=== PATIENT | male | born 1970 | race Caucasian/White ===

== ENCOUNTER → 2024-11-01 | Outpatient (CLI) | payer BC, SELFPAY ==
[2024-11-01 09:34] LABS: Basophils % (Auto) 1 % (0-2.5); Eosinophils # (Auto) 0.3 Thou/mm3 (0.0-0.5); Eosinophils % (Auto) 5 % (0-10); Hematocrit 38.8 % (41.0-53.0); Hemoglobin 12.2 g/dL (13.5-16.0); Immature Granulocytes % (Auto) 0 % (0-0); Immature Granulocytes Auto 0.01 Thou/mm3 (0.00-0.00); Lymphocytes # (Auto) 1.4 Thou/mm3 (1.0-4.8); Lymphocytes % (Auto) 27 % (10-50); Mean Corpuscular HGB Conc 31.4 g/dl (31.0-37.0); Mean Corpuscular Hemoglobin 26.7 pg (25.0-35.0); Mean Corpuscular Volume 85 fL (80-100); Monocytes # (Auto) 0.4 Thou/mm3 (0.0-0.8); Monocytes % (Auto) 8 % (0-12); Neutrophils # (Auto) 3.1 Thou/mm3 (1.8-7.7); Neutrophils % (Auto) 59 % (37-80); Nucleated Red Blood Cell % 0 /100 WBC (0); Platelet Count 161 Thou/mm3 (140-440); RDW Standard Deviation 43.6 fL (35.1-43.9); Red Blood Count 4.57 Miln/mm3 (4.50-5.90); White Blood Count 5.2 Thou/mm3 (3.8-10.6)
[2024-11-01 09:51] LABS: Creatinine MALB Rnd Ur 120 mg/dL (30-125); Microalbumin Creat Ratio 281 mg/gCrea (<30); Microalbumin, Random Urine 337 mg/L (0-300)
[2024-11-01 09:57] LABS: Alanine Aminotransferase 16 U/L (10-49); Albumin, Serum 4.2 gm/dL (3.5-5.0); Alkaline Phosphatase 56 U/L (46-116); Anion Gap 6 (7-16); Aspartate Amino Transferase 14 U/L (0-34); BUN/Creatinine Ratio 14 Ratio (12-20); Bilirubin,Direct 0.2 mg/dL (0.0-0.3); Bilirubin,Total 0.7 mg/dL (0.3-1.2); Blood Urea Nitrogen 15 mg/dL (9-23); Calcium 9.1 mg/dL (8.3-10.6); Carbon Dioxide 29.8 mMol/L (20.0-31.0); Chloride 108 mMol/L (98-107); Cholesterol 115 mg/dL (132-200); Creatinine (Component) 1.1 mg/dL (0.6-1.3); Glucose 137 mg/dL (74-106); HDL Cholesterol 38 mg/dL (40-60); LDL Cholesterol,Calculated 60 mg/dL (0-130); Osmolality,Calculated 289 (275-295); Potassium 4.3 mMol/L (3.4-5.1); Sodium 144 mMol/L (136-145); Total Protein 6.3 gm/dL (5.7-8.2); Triglycerides 84 mg/dL (30-150); eGFR > 60 See Note
[2024-11-01 10:12] LABS: Glucose Estimated Average 140 mg/dL (80-131); Hemoglobin A1C 6.5 % Hgb (4.8-6.0)
== END | disposition home or self-care (01) ==
LOC: COPL 07:59
PROVIDERS: PCP Family Medicine; Referring Provider Family Medicine; Visit Provider Family Medicine
DX: E11.9 Type 2 diabetes mellitus without complications (principal); D50.9 Iron deficiency anemia, unspecified; E78.5 Hyperlipidemia, unspecified
CPT/HCPCS: 36415; 80048; 80061; 80076; 82043; 82570; 83036; 85025

== ENCOUNTER 2025-06-03 09:54 | Emergency (ER) | payer OTHER, SELFPAY ==
[2025-06-03 09:56] VITALS: BMI 38.2
--- NOTE | 2025-06-03 10:10 | XR_ITS ---
Examination: Knee, left, 3 views Technique: Knee AP, lateral, oblique 3 views Date and time of exam: June 03, 2025, 1016 hours INDICATIONS: Injury to the knee 4 days ago, knee pain. FINDINGS: Old appearing densities at the lower margin of the patella but clinical correlation advised Small knee effusion Femur tibia fibula appear intact IMPRESSION: Old appearing densities at the lower margin of the patella but clinical correlation is advised As clinically warranted, consider CT scan knee without contrast follow-up
[2025-06-03 10:15] VITALS: BP 169/74; PULSE 88; RESP 18; TEMP 36.9; O2SAT 99
--- NOTE | 2025-06-03 10:38 | PD.EDLOWEX ---
Lower Extremity Injury RME/HPI General Chief Complaint: Extremity Injury, Lower Stated Complaint: L KNEE INJURY ON 05/31/25 AT WORK Time Seen by Provider: 06/03/25 09:59 Source: patient Arrival date/time: 06/03/25 09:54 54-year-old male with no known medical history presents to the emergency room with a chief complaint of tenderness and swelling to his left knee after injuring his knee or bumping it on a cabinet on 05/31/2025 at work Mode of arrival: ambulatory Limitations: no limitations Related Data Home Medications ?Medication ?Instructions ?Recorded ?Confirmed Sitagliptin Phos/Metformin Hcl * 1 tab PO BIDWM #0 tabs 04/08/17 (JANUMET *) pioglitazone 30 mg tablet (Actos) 30 mg PO QDAY #0 tabs 04/08/17 ramipril 5 mg capsule (Altace) 5 mg PO QDAY #0 caps 04/08/17 Allergies Allergy/AdvReac Type Severity Reaction Status Date / Time codeine Allergy Severe MOSS Verified 06/03/25 09:55 Review of Systems Review of Systems Systems Reviewed: All systems reviewed, normal except as documented Constitutional Constitutional: Reports system reviewed and no additional complaints, except as documented, Denies fatigue, Denies fever(s), Denies headache(s) and Denies weakness Eyes Eyes: Reports system reviewed and no additional complaints, except as documented, Denies blurry vision and Denies change in vision ENT Ears, Nose, Mouth, and Throat: Reports system reviewed and no additional complaints, except as documented, Denies otalgia, Denies headache(s), Denies nasal congestion, Denies throat swelling and Denies vertigo Cardiovascular Cardiovascular: Reports system reviewed and no additional complaints, except as documented, Denies chest pain, Denies dyspnea and Denies dyspnea on exertion Respiratory Respiratory: Reports system reviewed and no additional complaints, except as documented, Denies chest congestion, Denies cough, Denies dyspnea, Denies dyspnea on exertion and Denies wheezing Gastrointestinal Gastrointestinal: Reports system reviewed and no additional complaints, except as documented, Denies abdominal pain, Denies cramping, Denies nausea and Denies vomiting Genitourinary Genitourinary: Reports system reviewed and no additional complaints, except as documented, Denies dysuria and Denies hematuria Musculoskeletal Musculoskeletal: Reports system reviewed and no additional complaints, except as documented, Reports abnormal gait, Reports arthralgias and Denies back pain Integumentary/Breasts Skin/Breast: Reports system reviewed and no additional complaints, except as documented and Denies wounds Neurologic Neurologic: Reports system reviewed and no additional complaints, except as documented, Reports abnormal gait, Denies confusion, Denies headache(s), Denies lack of coordination, Denies vertigo and Denies weakness Psychiatric Psychiatric: Reports system reviewed and no additional complaints, except as documented, Denies anxiety, Denies confusion, Denies depression, Denies paranoia, Denies suicidal ideation and Denies tactile hallucinations Endocrine Endocrine: Reports system reviewed and no additional complaints, except as documented and Denies fatigue Hematologic/Lymphatic Hematologic/Lymphatic: Reports system reviewed and no additional complaints, except as documented and Denies lymphadenopathy Allergic/Immunologic Allergic/Immunologic: Reports system reviewed and no additional complaints, except as documented, Denies throat swelling, Denies urticaria and Denies wheezing Past Medical History Social History SMOKING STATUS: Never smoker ED Exam General Limitations: Present no limitations General appearance: Present alert and in no apparent distress Head Head exam: Present atraumatic Eye Eye exam: Present normal appearance, PERRL and EOMI ENT ENT exam: Present normal exam, normal oropharynx and mucous membranes moist Neck Neck exam: Present normal inspection, full ROM and trachea midline Chest Chest inspection: Present normal inspection and symmetric chest wall rise Respiratory Respiratory exam: Present normal lung sounds bilaterally Cardiovascular Cardiovascular exam: Present regular rate, normal rhythm and normal heart sounds Abdominal Exam Abdominal exam: Present soft and normal bowel sounds Extremities Exam Extremities exam: Present normal inspection and full ROM Expanded Lower Extremity Exam Hip/Pelvis exam: Present normal inspection Upper leg exam: Present normal inspection Knee exam: Present tenderness, swelling, pain with valgus and pain with varus Gait: observed and limited by pain Back Exam Back exam: Present normal inspection and full ROM Neurological Exam Neurological exam: Present alert, oriented X3 and CN II-XII intact Psychiatric Psychiatric exam: Present normal affect and normal mood Skin Skin exam: Present warm, dry, intact and normal color Course Quality Measures none Orders Category Date Time Status XR knee LT 3V Stat Exams 06/03/25 10:10 Completed Vital Signs Vital signs: Vital Signs Temperature 98.5 F 06/03/25 10:15 Pulse Rate 88 06/03/25 10:15 Respiratory Rate 18 06/03/25 10:15 Blood Pressure 169/74 H 11/14/25 10:15 Pulse Oximetry (%) 99 06/03/25 10:15 Oxygen Delivery Method Room Air 06/03/25 10:15 Extremity Injury, Lower MDM Narrative MDM Narrative:: 54-year-old male with no known medical history presents to the emergency room with a chief complaint of tenderness and swelling to his left knee after injuring his knee or bumping it on a cabinet on 05/31/2025 at work Patient is hemodynamically stable and in no apparent distress Physical examination shows tenderness and mild swelling to the patient's left knee. X-ray of the knee was completed and was negative for any acute fracture or dislocation. The x-ray showed an old appearing density at the lower margin of the patella. Patient was educated to have a follow-up with their Workmen's Comp. for further imaging An Wagner wrap was placed for patient's comfort Patient was discharged and educated to follow-up with primary care provider in the next 24 to 48 hours and return to the emergency room for any evidence of worsening signs or symptoms Patient data External records reviewed:: [facility] previous records Clinical information provided by:: patient Social determinants that could affect healthcare access:: none Patient has the following chronic illnesses:: No chronic illness How is presenting disease/condition affected by chronic disease/condition?: no chronic disease Evaluation data The following diagnostics were reviewed and interpreted by me:: lab results and radiology exam(s) Lab and/or radiology exams considered but not ordered:: Labs and radiology exams considered and ordered Interpretation Summary: X-ray left knee-FINDINGS: Old appearing densities at the lower margin of the patella but clinical correlation advised Small knee effusion Femur tibia fibula appear intact IMPRESSION: Old appearing densities at the lower margin of the patella but clinical correlation is advised As clinically warranted, consider CT scan knee without contrast follow-up Medications / Prescriptions Medications or Prescriptions considered but not ordered:: No medication given Medication administrations:: No medication given Consultations Consultation(s) initiated? (list below): No Diagnosis Extremity Injury, Lower Differential Diagnosis: other (Left knee fracture/left knee dislocation/left knee sprain) Most likely diagnosis given after review of the tests above:: Left knee sprain Admission Indicated Admission indicated?: not indicated Admission Request Was there a request for admission?: No Disposition Plan Disposition Plan: Discharge Discharge Attestation Discharge Attestation: The patient and all family members were given an opportunity to ask questions and understood the discharge instructions. Discharge instructions specifically effects, indications for sooner follow up or return to the emergency department, and the expected course of current diagnosis. Patient condition: Stable Discharge Plan Plan Patient Disposition: HOME (Self Care) Discharge Disposition comment: Stable Prescriptions/Referrals Prescriptions/Med Rec: No Action pioglitazone [Actos] 30 MG tablet 30 mg PO QDAY Qty: 0 Patient Comments: FOR DIABETES ramipril [Altace] 5 MG capsule 5 mg PO QDAY Qty: 0 Sitagliptin Phos/Metformin Hcl * (JANUMET *) 1 TAB tablet 1 tab PO BIDWM Qty: 0 Referrals: Tate Vale MD [Primary Care Provider, Family Practice] - In 1 week Problem List Clinical Impression: Left knee sprain Patient/Caregiver Discharge Instructions Education Materials: ED WAGNER Wrap, ED Knee Sprain Additional Instructions: Please follow-up with your Workmen's Comp. in the next 24 to 48 hours X-ray of your left knee was completed and there is no acute fractures or dislocations There is an old appearing density in the lower margin of the knee. Radiologist recommends a CT scan follow-up by your Workmen's Comp. For any evidence of worsening signs or symptoms return to emergency room immediately Print Language: Sinhala Stand Alone Forms: Gloria Award Info., Patient Portal Info Letter
== END 2025-06-03 12:20 | disposition home or self-care (01) ==
PROVIDERS: Emergency Provider Nurse Practitioner Family; PCP Family Medicine
DX: S83.92XA Sprain of unspecified site of left knee, initial encounter (principal); X50.9XXA Other and unspecified overexertion or strenuous movements or postures, initial encounter
CPT/HCPCS: 73562; 99282